=== PATIENT | female | born 1980 | race Caucasian/White ===

== ENCOUNTER 2019-04-28 14:38 | Emergency (ER) | payer BC ==
[~2019-04-28] VITALS: Ht 165.1 cm; Wt 67.2 kg
[2019-04-28 18:21] VITALS: BP 107/59
== END 2019-04-28 20:11 ==
LOC: ED 18:32
DX: R11.2 Nausea with vomiting, unspecified (principal); R19.7 Diarrhea, unspecified; R10.84 Generalized abdominal pain; Z87.01 Personal history of pneumonia (recurrent); Z90.49 Acquired absence of other specified parts of digestive tract; Z98.890 Other specified postprocedural states
CPT/HCPCS: 36415; 71045; 80053; 81003; 81025; 84484; 85025; 93005; 96360; 96372; 99284; J2550; J7030